=== PATIENT | female | born 1995 | race Caucasian/White ===

== ENCOUNTER 2019-11-01 01:12 | Emergency (ER) | payer MEDICAID ==
[~2019-11-01] VITALS: Ht 160 cm; Wt 68.0 kg
[2019-11-01 01:12] VITALS: BP 124/77
--- NOTE | 2019-11-01 01:12 | NUR ---
PT TO CHAIR C
--- NOTE | 2019-11-01 01:17 | NUR ---
PATIENT BIB [facility]. PATIENT EXAMINED BY DR. MCKENNA. PATIENT MEDICALLY CLEARED AND RELEASED IN CUSTODY IN STABLE CONDITION. ORIGINAL PRE-BOOK FORM GIVEN TO OFFICER IRENE.
== END 2019-11-01 01:17 ==
LOC: MED 01:12
DX: Z04.1 Encounter for examination and observation following transport accident (principal); Z02.89 Encounter for other administrative examinations; V89.2XXA Person injured in unspecified motor-vehicle accident, traffic, initial encounter; Y93.89 Activity, other specified; Y92.89 Other specified places as the place of occurrence of the external cause; Y99.8 Other external cause status
CPT/HCPCS: 99283